=== PATIENT | female | born 1990 | race Caucasian/White ===

== ENCOUNTER 2016-10-24 21:55 | Inpatient (IN) | payer MEDICAID ==
[2016-10-24 22:33] VITALS: BP 126/66
[2016-10-24] MEDS ORDERED: Hydrocodone/APAP 5mg/325mg Tab PO PRN (23:08)
[2016-10-24] MEDS ORDERED: Hydrocodone/APAP 10 mg/325 mg Tab PO PRN (23:08)
[2016-10-24] MEDS ORDERED: Magnesium Hydroxide (MOM) 30 mL UDC PO PRN (23:08)
[2016-10-24] MEDS ORDERED: Maalox 30 mL Cup PO PRN (23:08)
[2016-10-24] MEDS ORDERED: Morphine Sulfate 2 mg/mL 1mL Syr IVP PRN (23:14)
[2016-10-24 23:58] LABS: HEMOGLOBIN 9.7 gm/dL (11.7-15.5)
[2016-10-25] LABS: HEMATOCRIT 29.1 % (35.0-45.0); MEAN CORPUSCULAR HEMOGLOBIN 34.9 pg (27.0-31.0); MEAN CORPUSCULAR HGB CONC 33.5 pg (28.0-36.0); MEAN PLATELET VOLUME 7.9 fl; PLATELET COUNT 292 Th/cmm (150-400); RED BLOOD COUNT 2.79 Mil/cmm (3.80-5.10); RED CELL DISTRIBUTION WIDTH 26.6 % (11.5-20.0)
[2016-10-25 00:03] LABS: MEAN CELL VOLUME 104.4 fl (81-100); WHITE BLOOD COUNT 7.6 Th/cmm (4.8-10.8)
[2016-10-25 00:08] LABS: ALB/GLOB RATIO 0.5 (1.0-1.8); ALKALINE PHOSPHATASE 87 U/L (34-104); ANION GAP 12.4 (7.0-16.0); BILIRUBIN,TOTAL 16.2 mg/dL (0.3-1.0); BUN - UREA NITROGEN 6 mg/dL (7-25); CALCIUM SERUM 8.6 mg/dL (8.6-10.3); CARBON DIOXIDE 22.9 mEq/L (21.0-31.0); CHLORIDE 99 mEq/L (98-107); CREATININE - SERUM 0.5 mg/dL (0.6-1.2); GLUCOSE 194 mg/dL (70-105); POTASSIUM SERUM 4.3 mEq/L (3.5-5.1); SGOT 175 U/L (13-39); SGPT/ALT 24 U/L (7-52); SODIUM SERUM 130 mEq/L (136-145)
[2016-10-25] MEDS: D5-0.9%NS 1,000 ML IV SCH ×3 (00:11→21:20)
[2016-10-25 00:23] LABS: ANISOCYTOSIS 2+; BAND NEUTROPHILE 9 % (0-10); HYPOCHROMIA 1+; NEUTROPHILS 79 % (40-80); PLATELET ESTIMATE ADEQUATE (NORMAL); POLYCHROMASIA 1+; TOTAL CELLS COUNTED 100
[2016-10-25 07:48] LABS: ALB/GLOB RATIO 0.5 (1.0-1.8); ALKALINE PHOSPHATASE 83 U/L (34-104); ANION GAP 7.6 (7.0-16.0); BILIRUBIN,TOTAL 15.8 mg/dL (0.3-1.0); BUN - UREA NITROGEN 6 mg/dL (7-25); CALCIUM SERUM 8.6 mg/dL (8.6-10.3); CARBON DIOXIDE 27.4 mEq/L (21.0-31.0); CHLORIDE 99 mEq/L (98-107); CREATININE - SERUM 0.6 mg/dL (0.6-1.2); GLUCOSE 179 mg/dL (70-105); SGOT 135 U/L (13-39); SGPT/ALT 22 U/L (7-52); SODIUM SERUM 130 mEq/L (136-145)
[2016-10-25 08:10] LABS: HEMATOCRIT 28.3 % (35.0-45.0); HEMOGLOBIN 9.9 gm/dL (11.7-15.5); MEAN CORPUSCULAR HEMOGLOBIN 36.5 pg (27.0-31.0); MEAN CORPUSCULAR HGB CONC 34.8 pg (28.0-36.0); PLATELET COUNT 282 Th/cmm (150-400); WHITE BLOOD COUNT 7.3 Th/cmm (4.8-10.8)
[2016-10-25] MEDS: Lactulose 10 Gm/15 mL 30mL UDC PO SCH (09:03)
[2016-10-25] MEDS: Pantoprazole 40 mg EC Tab PO SCH (09:04)
--- NOTE | 2016-10-25 09:11 | Diagnostic Imaging Report ---
Portable chest x-ray HISTORY: Cough There is a poor inspiration. Heart size difficult to assess, but appears to be somewhat enlarged. Elevation of the right hemidiaphragm. No focal pulmonary processes. IMPRESSION: 1. No acute focal pulmonary processes 2. Question cardiomegaly that may be associated with a poor inspiration.
[2016-10-25 11:03] LABS: BAND NEUTROPHILE 3 % (0-10); NEUTROPHILS 85 % (40-80); PLATELET ESTIMATE ADEQUATE (NORMAL); TOTAL CELLS COUNTED 100
[2016-10-25 11:04] LABS: TARGET CELLS 1+; TEAR DROP CELLS 1+
[2016-10-25 14:01] LABS: MEAN CELL VOLUME 105.1 fl (81-100)
--- NOTE | 2016-10-25 23:05 | Consultation ---
DATE OF CONSULTATION: 10/25/2016 REASON FOR CONSULTATION: Alcoholic liver disease, jaundice, abdominal distention, and leg swelling. HISTORY OF PRESENT ILLNESS: This consult was obtained through the courtesy of Dr. Andrews for this 26-year-old with history of alcohol abuse, had quit a couple of weeks ago. The patient presented to [facility], was admitted there, and was discharged. The patient did okay for a few days, but then her symptoms came back, which is mostly jaundice of the eyes and leg swelling and abdominal distention, so the patient was admitted here for further evaluation. The patient is mostly complaining of discoloration of the eyes and the urine, the leg edema, abdominal sweating, and just feeling weak and tired. PAST MEDICAL HISTORY: Negative other than the alcoholic liver disease. PAST SURGICAL HISTORY: Negative. SOCIAL HISTORY: The patient used to drink heavily after 2 weeks ago. A nonsmoker, IV drug abuser. FAMILY HISTORY: Negative. REVIEW OF SYSTEMS: There is no weight loss. There is no GI bleed. There is no fever. PHYSICAL EXAMINATION: GENERAL: The patient is awake, oriented to self, place, and time, mild to moderate distress. VITAL SIGNS: Blood pressure is 124/71, heart rate 89, respiratory rate 16, and temperature 98.6. HEAD AND NECK: Pupils are reactive to light. Extraocular muscles intact. Sclerae icteric. Conjunctivae not pale. Oral cavity, no lesion. NECK: Supple. No jugular venous distention. No carotid bruit or lymph node. CHEST: Good respiratory movements. LUNGS: Clear to auscultation. CARDIOVASCULAR: Regular rate and rhythm. No murmur or gallop. ABDOMEN: Distended, mildly tender. EXTREMITIES: Lower extremities, there is 3+ edema. CENTRAL NERVOUS SYSTEM: Grossly nonfocal. LABORATORY DATA: White count 7.3, H and H of 9.9 and 28.3 with platelets of 282,000. Her MCV is high at 105, sodium was 130, bilirubin is 15.8, AST 135, ALT 22, and albumin is 2.5. IMPRESSION: The patient 26-year-old with history of alcohol abuse, now with jaundice, abdominal distention or ascites. ASSESSMENT AND PLAN: 1. Alcoholic liver disease. This needs correction recovery. The patient should be sober for longer period of time. She was advised about this. We will start on multivitamin, thiamine, folic acid, nutrition support, and see how the patient is doing. 2. Edema and abdominal distention. We will start diuresis. The patient is getting Lasix 20 mg daily. We would increase it to 40 mg b.i.d. We will add Aldactone 100 mg b.i.d. We will watch kidney functions and then further recommendations to follow. Also, we will order ultrasound and ultrasound-guided paracentesis if possible. Thank you, Dr. Andrews, for allowing me to participate in the care of this patient. If you have any further questions, please let me know. JOB# [id number]
[2016-10-26 06:32] LABS: HEMATOCRIT 29.1 % (35.0-45.0); HEMOGLOBIN 9.7 gm/dL (11.7-15.5); MEAN CORPUSCULAR HEMOGLOBIN 35.1 pg (27.0-31.0); MEAN CORPUSCULAR HGB CONC 33.4 pg (28.0-36.0); MEAN PLATELET VOLUME 8.2 fl; PLATELET COUNT 288 Th/cmm (150-400); RED BLOOD COUNT 2.77 Mil/cmm (3.80-5.10); RED CELL DISTRIBUTION WIDTH 26.6 % (11.5-20.0)
[2016-10-26 06:34] LABS: URINE BILIRUBIN LARGE (NEGATIVE); URINE BLOOD TRACE (NEGATIVE); URINE GLUCOSE (UA) NEGATIVE (NEGATIVE); URINE KETONE NEGATIVE (NEGATIVE); URINE PROTEIN 30 mg/dL (NEGATIVE)
[2016-10-26 06:42] LABS: MEAN CELL VOLUME 105.1 fl (81-100)
[2016-10-26 07:06] LABS: ALB/GLOB RATIO 0.5 (1.0-1.8); ALKALINE PHOSPHATASE 83 U/L (34-104); ANION GAP 12.7 (7.0-16.0); BILIRUBIN,TOTAL 14.6 mg/dL (0.3-1.0); BUN - UREA NITROGEN 8 mg/dL (7-25); BUN/CREATININE RATIO 13.3; CALCIUM SERUM 8.6 mg/dL (8.6-10.3); CARBON DIOXIDE 23.3 mEq/L (21.0-31.0); CHLORIDE 101 mEq/L (98-107); CREATININE - SERUM 0.6 mg/dL (0.6-1.2); GLUCOSE 133 mg/dL (70-105); SGOT 299 U/L (13-39); SGPT/ALT 32 U/L (7-52); SODIUM SERUM 133 mEq/L (136-145)
[2016-10-26 07:33] LABS: URINE BACTERIA OCCASIONAL /hpf (NONE SEEN); URINE EPITHELIAL CELLS RARE /lpf (FEW); URINE RBC 0-1 /hpf (0-5); URINE WBC 0-2 /hpf (0-5)
[2016-10-26 08:08] LABS: BAND NEUTROPHILE 2 % (0-10); EOSINOPHIL 1 % (0-5); NEUTROPHILS 80 % (40-80); TOTAL CELLS COUNTED 100
[2016-10-26 08:09] LABS: ANISOCYTOSIS 2+; PLATELET ESTIMATE ADEQUATE (NORMAL); PLATELET MORPHOLOGY PLATELET CLUMPS SEEN (NORMAL)
[2016-10-26] MEDS: Pantoprazole 40 mg EC Tab PO SCH (09:59)
[2016-10-26] MEDS: Lactulose 10 Gm/15 mL 30mL UDC PO SCH (10:00)
[2016-10-26] MEDS: Multivitamin Tab PO SCH (10:02)
--- NOTE | 2016-10-26 10:31 | Diagnostic Imaging Report ---
Ultrasound abdomen limited History: Distention, assess for ascites Comparison: None Findings: Sonography of the abdomen was performed in multiple planes. No evidence of ascites. The liver appears enlarged. The liver borders are not well-defined on the exam. IMPRESSION: No evidence of ascites The liver appears enlarged. If indicated follow-up CT would provide additional detail and assessment.
--- NOTE | 2016-10-26 10:35 | History & Physical ---
ADMIT DATE: 10/25/2016 CHIEF COMPLAINT: The patient has jaundice and abdominal swelling. HISTORY OF PRESENT ILLNESS: The patient is a 26-year-old female with history of alcohol abuse, sober for 2 weeks. The patient states she was previously drinking 1 to 2 bowls of hard liquor daily. The patient had recent episode where she had lower GI bleed ____ and discharged on Lasix and propranolol. The patient was told that she has liver failure. The patient presented to [facility] ER for abdominal discomfort and abdominal swelling. The patient denies fever, chills, nausea, vomiting, diarrhea, melena or bright red blood per rectum, chest pain, shortness of breath or other complaints. SOCIAL HISTORY: History of alcohol abuse. PAST MEDICAL HISTORY: Alcohol abuse, GI bleed, anemia. PAST SURGICAL HISTORY: Negative. ALLERGIES: No known allergies. REVIEW OF SYSTEMS: See history of present illness. PHYSICAL EXAMINATION: GENERAL: The patient is awake, alert, nontoxic in appearance. VITAL SIGNS: On admission, temperature 97.5, blood pressure 126/66, respirations 20 and O2 sat 97% on room air. HEENT: Normocephalic, atraumatic. Extraocular movements intact. Oropharynx clear. NECK: Supple, no thyromegaly. CARDIOVASCULAR: S1, S2. No rubs or gallops. RESPIRATORY: Clear. No wheezes or rhonchi. GASTROINTESTINAL: Soft, nontender, distended. Positive bowel sounds. GENITOURINARY: No CVA tenderness. No suprapubic tenderness. BACK: Limited tenderness. EXTREMITIES: Equal pulses bilaterally. 2+ pitting edema in bilateral lower extremities. SKIN: Negative. PSYCHIATRIC: Negative. NEUROLOGIC: Cranial nerves intact. Extraocular motion is intact. Sensation intact. Neurovascular intact. Bilateral muscles grossly normal. LABORATORY DATA: On admission are as follows: Hematology: WBC of 7.6, hemoglobin 9.7, hematocrit 28.1, platelet count of 292. No left shift noted. Chemistry: Sodium 130, potassium 4.3, chloride 90, bicarbonate 22, anion gap 12, BUN 6, creatinine 0.5. GFR is more than 60. Glucose is 194, hemoglobin A1c is 4.5, calcium 8.6, total bilirubin 16.2. AST is 175, ALT is 24, alkaline phosphatase 87, total protein 7.9, albumin 2.6 and globulin 5.3. MICROBIOLOGY: No new microbiology results. RADIOLOGY: Chest x-ray on admission shows no acute focal pulmonary process. IMPRESSION: 1. Abdominal pain. 2. Alcoholic hepatitis. 3. Anemia. 4. Hyponatremia. 5. Hyperglycemia. 6. Hypoalbuminemia. 7. Alcoholic liver disease. 8. Bilateral lower extremity edema. PLAN: The patient is admitted to med/surg unit at [facility]. Obtain further labs and consultation as needed. JOB# [id number]
--- NOTE | 2016-10-26 11:06 | Progress Notes ---
DATE: 10/26/2016 SUBJECTIVE: The patient is awake, alert. The patient has been ordered for ultrasound-guided paracentesis. OBJECTIVE: VITAL SIGNS: Temperature 97.3, pulse 92, blood pressure 119/62, respiratory rate 18, 90% on room air. CARDIOVASCULAR: S1, S2. RESPIRATORY: Clear. ABDOMEN: Soft, distended, nontender. Positive bowel sounds. EXTREMITIES: Edema of bilateral lower extremity present. LABORATORY DATA: Hematology: WBC 6.0, hemoglobin 9.7, hematocrit 28.1, platelet count of 288, 8% monocytes. Chemistry: Sodium 133, potassium 4.0, chloride 101, bicarbonate 23, anion gap 12, BUN 8, creatinine 0.6, GFR is 160, glucose 133, calcium 8.6. Total bilirubin 14.6, AST 299, ALT 32, alkaline phosphatase 83, ammonia level 63, total protein 7.7, albumin 2.6, globulin is 5.1. Microbiology: No new micro results. RADIOLOGY: No new results. ASSESSMENT: 1. Abdominal pain, presently improved. 2. Anxiety. 3. Jaundice. 4. Alcoholic hepatitis. 5. Alcoholic liver disease. 6. Bilateral lower extremity edema. 7. Anemia. 8. Hyponatremia. 9. Hyperglycemia. 10. Transaminitis. 11. Elevated ammonia level. 12. Hypoalbuminemia. PLAN: Continue current management. Obtain labs in a.m. Awaiting ultrasound results. Give the patient lactulose for elevated ammonia level. Further consults. JOB# [id number]
--- NOTE | 2016-10-26 16:14 | GI Progress Note ---
Subjective - Review of Systems Service Date: 10/26/16 Events since last encounter: US performed and showed no fluid but massive hepatomegaly. Pt having 1 BM per day, no confusion. Objective - Results Result Diagrams: 10/26/16 05:15 10/26/16 05:15 Recent Labs: Laboratory Last Values WBC 6.0 Th/cmm (4.8-10.8) 10/26/16 05:15 RBC 2.77 Mil/cmm (3.80-5.10) L 10/26/16 05:15 Hgb 9.7 gm/dL (11.7-15.5) L 10/26/16 05:15 Hct 29.1 % (35.0-45.0) L 10/26/16 05:15 MCV 105.1 fl (81-100) H 10/26/16 05:15 MCH 35.1 pg (27.0-31.0) H 10/26/16 05:15 MCHC Differential 33.4 pg (28.0-36.0) 10/26/16 05:15 RDW 26.6 % (11.5-20.0) H 10/26/16 05:15 Plt Count 288 Th/cmm (150-400) 10/26/16 05:15 MPV 8.2 fl 10/26/16 05:15 Band Neutrophils % 2 % (0-10) 10/26/16 05:15 Neutrophils (Manual) 80 % (40-80) 10/26/16 05:15 Lymphocytes 8 % (20-50) L 10/26/16 05:15 Monocytes 9 % (2-10) 10/26/16 05:15 Eosinophils 1 % (0-5) 10/26/16 05:15 Hypochromia 1+ 10/24/16 23:45 Platelet Estimate ADEQUATE (NORMAL) 10/26/16 05:15 Platelet Morphology PLATELET CLUMPS SEEN (NORMAL) 10/26/16 05:15 Polychromasia 1+ 10/24/16 23:45 Anisocytosis 2+ 10/26/16 05:15 Macrocytosis 1+ 10/26/16 05:15 Target Cells 1+ 10/25/16 06:41 Tear Drop Cells 1+ 10/25/16 06:41 RBC Morph Micro Appear ABNORMAL (NORMAL) 10/26/16 05:15 Sodium 133 mEq/L (136-145) L 10/26/16 05:15 Potassium 4.0 mEq/L (3.5-5.1) 10/26/16 05:15 Chloride 101 mEq/L (98-107) 10/26/16 05:15 Carbon Dioxide 23.3 mEq/L (21.0-31.0) 10/26/16 05:15 Anion Gap 12.7 (7.0-16.0) 10/26/16 05:15 BUN 8 mg/dL (7-25) 10/26/16 05:15 Creatinine 0.6 mg/dL (0.6-1.2) 10/26/16 05:15 Est GFR ( Amer) > 60.0 ml/min (>90) 10/26/16 05:15 Est GFR (Non-Af Amer) > 60.0 ml/min 10/26/16 05:15 BUN/Creatinine Ratio 13.3 10/26/16 05:15 Glucose 133 mg/dL (70-105) H 10/26/16 05:15 Hemoglobin A1c % 4.5 % (4.0-6.0) 10/24/16 23:45 Calcium 8.6 mg/dL (8.6-10.3) 10/26/16 05:15 Total Bilirubin 14.6 mg/dL (0.3-1.0) H 10/26/16 05:15 AST 299 U/L (13-39) H 10/26/16 05:15 ALT 32 U/L (7-52) 10/26/16 05:15 Alkaline Phosphatase 83 U/L (34-104) 10/26/16 05:15 Ammonia 54 umol/L (16-53) H 10/26/16 10:50 Total Protein 7.7 gm/dL (6.0-8.3) 10/26/16 05:15 Albumin 2.6 gm/dL (3.7-5.3) L 10/26/16 05:15 Globulin 5.1 gm/dL 10/26/16 05:15 Albumin/Globulin Ratio 0.5 (1.0-1.8) L 10/26/16 05:15 Urine Source CLEAN C 10/26/16 03:59 Urine Color D. YELLOW 10/26/16 03:59 Urine Clarity SL. CLOUDY (CLEAR) 10/26/16 03:59 Urine pH 6.0 (4.6 - 8.0) 10/26/16 03:59 Ur Specific [place] 1.015 (1.005-1.030) 10/26/16 03:59 Urine Protein 30 mg/dL (NEGATIVE) H 10/26/16 03:59 Urine Glucose (UA) NEGATIVE mg/dL (NEGATIVE) 10/26/16 03:59 Urine Ketones NEGATIVE mg/dL (NEGATIVE) 10/26/16 03:59 Urine Blood TRACE (NEGATIVE) 10/26/16 03:59 Urine Nitrate NEGATIVE (NEGATIVE) 10/26/16 03:59 Urine Bilirubin LARGE (NEGATIVE) H 10/26/16 03:59 Urine Ictotest POSITIVE (NEGATIVE) 10/26/16 03:59 Urine Urobilinogen 1.0 E.U./dL (0.2 - 1.0) 10/26/16 03:59 Ur Leukocyte Esterase TRACE (NEGATIVE) H 10/26/16 03:59 Urine RBC 0-1 /hpf (0-5) 10/26/16 03:59 Urine WBC 0-2 /hpf (0-5) 10/26/16 03:59 Ur Epithelial Cells RARE /lpf (FEW) 10/26/16 03:59 Urine Bacteria OCCASIONAL /hpf (NONE SEEN) 10/26/16 03:59 - Physical Exam Vitals and I&O: Vital Signs Temp 97.3 F 10/26/16 08:00 Pulse 111 10/26/16 10:01 Resp 18 10/26/16 08:00 BP 133/65 10/26/16 10:01 Pulse Ox 93 10/26/16 08:00 Intake & Output 10/25/16 10/26/16 10/26/16 18:59 06:59 18:59 Intake Total 1979 1720 Output Total 300 Balance 1979 1420 Weight (lbs) 102.965 kg 109.486 kg 109.588 kg Intake: Intake, IV Amount 1000 1000 D5-0.9%Ns 1,000 ml @ 100 1000 1000 mls/hr IV .Q10H ELLIE Rx#: [id number] Oral 980 720 Output: Urine 300 Other: # Voids 3 # Bowel Movements 1 Active Medications: Current Medications Acetaminophen (Tylenol) 650 mg PO Q6H PRN PRN Reason: Mild Pain/Headache/T above 101 Stop: 12/23/16 23:07 Acetaminophen/Hydrocodone Bitart (Barry 10 Mg/325 Mg) 1 tab PO Q6H PRN PRN Reason: Pain (Severe) Stop: 12/23/16 23:07 Acetaminophen/Hydrocodone Bitart (Barry 5mg/325mg) 1 tab PO Q6H PRN PRN Reason: Moderate Pain Stop: 12/23/16 23:07 Al Hydrox/Mg Hydrox/Simethicone (Maalox) 30 ml PO Q6H PRN PRN Reason: Dyspepsia Stop: 12/23/16 23:07 Folic Acid (Folate) 1 mg PO DAILY ELLIE Stop: 12/24/16 18:29 Last Admin: 10/26/16 10:02 Dose: 1 mg Furosemide (Lasix) 40 mg PO DAILY ELLIE Stop: 12/26/16 08:59 Dextrose/Sodium Chloride (D5-0.9%Ns) 1,000 mls @ 100 mls/hr IV .Q10H ELLIE Stop: 12/23/16 23:14 Last Admin: 10/25/16 21:20 Dose: 100 mls/hr Lactulose (Cephulac) 20 gm PO DAILY ELLIE Stop: 12/24/16 08:59 Last Admin: 10/26/16 10:00 Dose: Not Given Lorazepam (Ativan) 1 mg PO Q6H PRN; Protocol PRN Reason: Anxiety/Agitation Stop: 12/23/16 23:07 Magnesium Hydroxide (Milk Of Magnesia) 30 ml PO HS PRN PRN Reason: Constipation Stop: 12/23/16 23:07 Morphine Sulfate (Morphine) 2 mg IVP Q4H PRN PRN Reason: Severe Pain Stop: 12/23/16 23:13 Multivitamins/Vitamin C (Theragran) 1 tab PO DAILY ELLIE Stop: 12/24/16 18:29 Last Admin: 10/26/16 10:02 Dose: 1 tab Ondansetron HCl (Zofran Odt) 4 mg PO Q6H PRN PRN Reason: Nausea / Vomiting Stop: 12/23/16 23:07 Pantoprazole Sodium (Protonix) 40 mg PO DAILY ELLIE Stop: 12/24/16 08:59 Last Admin: 10/26/16 09:59 Dose: 40 mg Propranolol HCl (Inderal) 10 mg PO BID ELLIE Stop: 12/24/16 08:59 Last Admin: 10/26/16 09:58 Dose: 10 mg Temazepam (Restoril) 15 mg PO HS PRN; Protocol PRN Reason: Insomnia Stop: 12/23/16 23:13 Thiamine HCl (Vitamin B1) 100 mg PO DAILY ELLIE Stop: 12/24/16 18:29 Last Admin: 10/26/16 09:59 Dose: 100 mg General: Alert, Oriented x3 HEENT: Atraumatic, Other (scleral icterus) Neck: Supple Cardiovascular: Regular rate, Normal S1, Normal S2 Abdomen: Bowel sounds, Soft, Hepatomegaly, Distended, Other (no obvious fluid wave) Extremities: Edema Skin: Other (jaundice) Assessment/Plan - Problem List Patient Problems: All Active Problems Alcoholic hepatitis (Acute) K70.10 Alcoholic hepatitis without ascites (Acute) K70.10 - Assessment Assessment: # Alcoholic hepatitis # Hepatomegaly # LE edema # Jaundice Pt reports last drink was about 3 weeks prior. She still clearly is suffering alcoholic hepatitis given her elevated Tbili pereira and very large inflammed liver. She has no ascites on US, and I suspect her distended abdomen is mostly reflecting hepatomegaly. Recent studies have shown that prednisilone and trental have largely minimal to no benefit, but do carry significant possible adverse effects. Thus, she has not been started on these medications. Plan: - diuretics recently increased on 10/25 to aldactone 100 and lasix 40mg, which will hopefully help with her LE edema - No ascites on US, thus do not suspect portal vein thrombus (she would not be a good candidate for anticoagulation given background of alcoholic hepatitis) - Strongly recommend abstaining from EtOH which can facilitate recovery from alc hepatitis - Unclear whether she has underlying cirrhosis, and this can be assessed after she has been abstinent for a longer time period - 2g Na diet
[2016-10-26 16:38] LABS: INR 1.53 (0.5-1.4); PROTHROMBIN TIME (TEST) 16.2 SECONDS (9.5-11.5)
[2016-10-27 07:40] LABS: ALB/GLOB RATIO 0.6 (1.0-1.8); ALKALINE PHOSPHATASE 81 U/L (34-104); ANION GAP 8.9 (7.0-16.0); BILIRUBIN,TOTAL 15.7 mg/dL (0.3-1.0); BUN - UREA NITROGEN 6 mg/dL (7-25); CALCIUM SERUM 8.7 mg/dL (8.6-10.3); CARBON DIOXIDE 26.8 mEq/L (21.0-31.0); CHLORIDE 100 mEq/L (98-107); CREATININE - SERUM 0.5 mg/dL (0.6-1.2); GLUCOSE 104 mg/dL (70-105); POTASSIUM SERUM 3.7 mEq/L (3.5-5.1); SGOT 286 U/L (13-39); SGPT/ALT 37 U/L (7-52); SODIUM SERUM 132 mEq/L (136-145)
[2016-10-27 08:32] LABS: HEMATOCRIT 27.4 % (35.0-45.0); HEMOGLOBIN 9.3 gm/dL (11.7-15.5); MEAN CORPUSCULAR HEMOGLOBIN 35.9 pg (27.0-31.0); MEAN CORPUSCULAR HGB CONC 33.7 pg (28.0-36.0); MEAN PLATELET VOLUME 8.3 fl; PLATELET COUNT 277 Th/cmm (150-400); RED BLOOD COUNT 2.58 Mil/cmm (3.80-5.10); RED CELL DISTRIBUTION WIDTH 27.5 % (11.5-20.0); WHITE BLOOD COUNT 5.7 Th/cmm (4.8-10.8)
[2016-10-27 08:42] LABS: MEAN CELL VOLUME 106.4 fl (81-100)
[2016-10-27] MEDS: Multivitamin Tab PO SCH (08:50)
[2016-10-27] MEDS: Pantoprazole 40 mg EC Tab PO SCH (08:51)
[2016-10-27] MEDS: Lactulose 10 Gm/15 mL 30mL UDC PO SCH (09:20)
[2016-10-27 09:55] LABS: ANISOCYTOSIS 2+; BAND NEUTROPHILE 7 % (0-10); NEUTROPHILS 72 % (40-80); PLATELET ESTIMATE ADEQUATE (NORMAL); PLATELET MORPHOLOGY NORMAL (NORMAL); TARGET CELLS 1+; TOTAL CELLS COUNTED 100
[2016-10-27] MEDS: D5-0.45NS 1,000 ML IV SCH (10:35)
--- NOTE | 2016-10-27 11:08 | Progress Notes ---
DATE: 10/27/2016 SUBJECTIVE: The patient is awake and alert. No reports of confusion. No reports of abdominal pain. PHYSICAL EXAMINATION: VITAL SIGNS: Temperature is 98, pulse 109, blood pressure 133/80, respirations 18, O2 sat 96% on room air. CARDIOVASCULAR: S1 and S2. RESPIRATORY: Clear. GASTROINTESTINAL: Soft, distended, nontender. Positive bowel sounds. LABORATORY DATA: Hematology: WBC 5.7, hemoglobin is 9.3, hematocrit 27.4, platelet count of 277 and no ____. Chemistry: Sodium 132, potassium 3.7, chloride 108, bicarbonate 8.9, BUN 6, creatinine 0.5. GFR is more than 60. Glucose is 104, calcium 8.7. Total bili 15.7, AST 286, ALT 37, alkaline phosphatase 81, ____ 7.8, albumin 2.8, globulin 5.0. Microbiology: MRSA screen from 10/25/2016 negative. RADIOLOGY: Abdominal ultrasound shows no evidence of ascites. Liver appears enlarged. ASSESSMENT: 1. Abdominal pain, resolved. 2. Ascites ruled out. 3. Jaundice with alcohol hepatitis and alcohol liver disease. 4. Bilateral extremity edema (improved). 5. Anemia. 6. Hyponatremia. 7. Transaminitis. 8. Hypoalbuminemia. PLAN: Continue current medication. Obtain labs in a.m. Continue diuresis. JOB# [id number]
[2016-10-28 05:52] LABS: HEMATOCRIT 27.8 % (35.0-45.0); HEMOGLOBIN 9.1 gm/dL (11.7-15.5); MEAN CORPUSCULAR HEMOGLOBIN 34.7 pg (27.0-31.0); MEAN CORPUSCULAR HGB CONC 32.5 pg (28.0-36.0); MEAN PLATELET VOLUME 8.2 fl; PLATELET COUNT 261 Th/cmm (150-400); RED BLOOD COUNT 2.61 Mil/cmm (3.80-5.10); RED CELL DISTRIBUTION WIDTH 26.3 % (11.5-20.0); WHITE BLOOD COUNT 6.8 Th/cmm (4.8-10.8)
[2016-10-28 06:02] LABS: INR 1.38 (0.5-1.4); PROTHROMBIN TIME (TEST) 14.6 SECONDS (9.5-11.5)
[2016-10-28 06:14] LABS: ALB/GLOB RATIO 0.5 (1.0-1.8); ALKALINE PHOSPHATASE 78 U/L (34-104); ANION GAP 9.4 (7.0-16.0); BILIRUBIN,DIRECT 8.63 mg/dL (0.0-0.2); BILIRUBIN,TOTAL 15.2 mg/dL (0.3-1.0); BUN - UREA NITROGEN 4 mg/dL (7-25); CALCIUM SERUM 8.7 mg/dL (8.6-10.3); CARBON DIOXIDE 27.3 mEq/L (21.0-31.0); CHLORIDE 101 mEq/L (98-107); CREATININE - SERUM 0.5 mg/dL (0.6-1.2); GLUCOSE 115 mg/dL (70-105); POTASSIUM SERUM 3.7 mEq/L (3.5-5.1); SGOT 233 U/L (13-39); SGPT/ALT 36 U/L (7-52); SODIUM SERUM 134 mEq/L (136-145)
[2016-10-28] MEDS: Lactulose 10 Gm/15 mL 30mL UDC PO SCH (09:21)
[2016-10-28] MEDS: Multivitamin Tab PO SCH (09:22)
[2016-10-28] MEDS: Pantoprazole 40 mg EC Tab PO SCH (09:22)
[2016-10-28] MEDS: D5-0.45NS 1,000 ML IV SCH (09:38)
[2016-10-28 13:56] LABS: MEAN CELL VOLUME 106.7 fl (81-100)
--- NOTE | 2016-10-28 23:32 | Progress Notes ---
DATE: 10/28/2016 SUBJECTIVE: The patient is awake, alert. No reports of acute complaints. The patient has been started on ____ by GI. PHYSICAL EXAMINATION: VITAL SIGNS: Temperature is 98.6, pulse 101, blood pressure 130/54, respirations 16, and O2 saturation 97% on room air. CARDIOVASCULAR: S1 and S2. RESPIRATORY: Clear. GASTROINTESTINAL: Soft, distended, nontender. Positive bowel sounds. EXTREMITIES: Bilateral lower extremity edema present. LABORATORY DATA: Hematology: WBC 6.8, hemoglobin 9.1, hematocrit 27.8, platelet count 261. No left Shift noted. PT 14.6, INR 1.38. Chemistry: Sodium is 134, potassium 3.7, chloride 101, bicarbonate 27, anion gap 9.4, BUN 4, creatinine 0.5. GFR is more than 60, glucose 115, calcium 8.7. Total bilirubin 15.2, direct bilirubin is 8.6, AST is 233, ALT is 36, alkaline phosphatase 78, ammonia level is 60, total protein 7.4, albumin 2.6, globulin is 4.8. MICROBIOLOGY: No new microbiology results. RADIOLOGY: No new radiology results. ASSESSMENT: 1. Abdominal pain, resolved. 2. Ascites, ruled out. 3. Jaundice. 4. Alcohol hepatitis. 5. Alcohol liver disease. 6. Bilateral lower extremity edema. 7. Anemia. 8. Hyponatremia (improved). 9. Hyperglycemia. 10. Transaminitis (improved). 11. Elevated ammonia level. 12. Hypoalbuminemia. 13. Possible urinary tract infection. PLAN: Continue current medication and treatment. Obtain labs in a.m. Continue diuresis. We will start the patient on ____ for possible UTI. Further recommendations per consults. JOB# [id number]
[2016-10-29 05:31] LABS: HEMATOCRIT 28.2 % (35.0-45.0); HEMOGLOBIN 9.5 gm/dL (11.7-15.5); MEAN CORPUSCULAR HGB CONC 33.9 pg (28.0-36.0); MEAN PLATELET VOLUME 7.8 fl; PLATELET COUNT 243 Th/cmm (150-400); RED BLOOD COUNT 2.65 Mil/cmm (3.80-5.10); RED CELL DISTRIBUTION WIDTH 25.4 % (11.5-20.0); WHITE BLOOD COUNT 6.9 Th/cmm (4.8-10.8)
[2016-10-29 05:49] LABS: INR 1.47 (0.5-1.4); PROTHROMBIN TIME (TEST) 15.6 SECONDS (9.5-11.5)
[2016-10-29 05:51] LABS: ALB/GLOB RATIO 0.6 (1.0-1.8); ALKALINE PHOSPHATASE 77 U/L (34-104); BILIRUBIN,DIRECT 8.93 mg/dL (0.0-0.2); BILIRUBIN,TOTAL 15.4 mg/dL (0.3-1.0); BUN - UREA NITROGEN 3 mg/dL (7-25); CALCIUM SERUM 8.8 mg/dL (8.6-10.3); CARBON DIOXIDE 28.9 mEq/L (21.0-31.0); CHLORIDE 100 mEq/L (98-107); CREATININE - SERUM 0.5 mg/dL (0.6-1.2); GLUCOSE 117 mg/dL (70-105); POTASSIUM SERUM 3.9 mEq/L (3.5-5.1); SGOT 190 U/L (13-39); SGPT/ALT 35 U/L (7-52); SODIUM SERUM 134 mEq/L (136-145)
[2016-10-29 06:00] LABS: MEAN CELL VOLUME 106.3 fl (81-100)
[2016-10-29 07:54] LABS: BAND NEUTROPHILE 1 % (0-10); BASOPHIL 2 % (0-3); EOSINOPHIL 1 % (0-5); NEUTROPHILS 67 % (40-80); TOTAL CELLS COUNTED 100
[2016-10-29 07:55] LABS: ANISOCYTOSIS 2+; PLATELET ESTIMATE ADEQUATE (NORMAL); PLATELET MORPHOLOGY NORMAL (NORMAL); POLYCHROMASIA 1+
[2016-10-29] MEDS: Lactulose 10 Gm/15 mL 30mL UDC PO SCH (09:04)
[2016-10-29] MEDS: Multivitamin Tab PO SCH (09:05)
[2016-10-29] MEDS: Pantoprazole 40 mg EC Tab PO SCH (09:05)
[2016-10-29] MEDS: D5-0.45NS 1,000 ML IV SCH (15:54)
--- NOTE | 2016-10-29 16:06 | GI Progress Note ---
Subjective - Review of Systems Service Date: 10/29/16 Events since last encounter: Pt notes she vomited once while eating [employer]. Otherwise feeling well. Objective - Results Result Diagrams: 10/29/16 05:20 10/29/16 05:20 Recent Labs: Laboratory Last Values WBC 6.9 Th/cmm (4.8-10.8) 10/29/16 05:20 RBC 2.65 Mil/cmm (3.80-5.10) L 10/29/16 05:20 Hgb 9.5 gm/dL (11.7-15.5) L 10/29/16 05:20 Hct 28.2 % (35.0-45.0) L 10/29/16 05:20 MCV 106.3 fl (81-100) H 10/29/16 05:20 MCH 36.0 pg (27.0-31.0) H 10/29/16 05:20 MCHC Differential 33.9 pg (28.0-36.0) 10/29/16 05:20 RDW 25.4 % (11.5-20.0) H 10/29/16 05:20 Plt Count 243 Th/cmm (150-400) 10/29/16 05:20 MPV 7.8 fl 10/29/16 05:20 Band Neutrophils % 1 % (0-10) 10/29/16 05:20 Neutrophils (Manual) 67 % (40-80) 10/29/16 05:20 Lymphocytes 19 % (20-50) L 10/29/16 05:20 Monocytes 10 % (2-10) 10/29/16 05:20 Eosinophils 1 % (0-5) 10/29/16 05:20 Basophils 2 % (0-3) 10/29/16 05:20 Hypochromia 1+ 10/24/16 23:45 Platelet Estimate ADEQUATE (NORMAL) 10/29/16 05:20 Platelet Morphology NORMAL (NORMAL) 10/29/16 05:20 Polychromasia 1+ 10/29/16 05:20 Anisocytosis 2+ 10/29/16 05:20 Macrocytosis 1+ 10/29/16 05:20 Target Cells 1+ 10/27/16 05:17 Tear Drop Cells 1+ 10/25/16 06:41 RBC Morph Micro Appear ABNORMAL (NORMAL) 10/29/16 05:20 PT 15.6 SECONDS (9.5-11.5) H 10/29/16 05:20 INR 1.47 (0.5-1.4) H 10/29/16 05:20 Sodium 134 mEq/L (136-145) L 10/29/16 05:20 Potassium 3.9 mEq/L (3.5-5.1) 10/29/16 05:20 Chloride 100 mEq/L (98-107) 10/29/16 05:20 Carbon Dioxide 28.9 mEq/L (21.0-31.0) 10/29/16 05:20 Anion Gap 9.0 (7.0-16.0) 10/29/16 05:20 BUN 3 mg/dL (7-25) L 10/29/16 05:20 Creatinine 0.5 mg/dL (0.6-1.2) L 10/29/16 05:20 Est GFR ( Amer) > 60.0 ml/min (>90) 10/29/16 05:20 Est GFR (Non-Af Amer) > 60.0 ml/min 10/29/16 05:20 BUN/Creatinine Ratio 6.0 10/29/16 05:20 Glucose 117 mg/dL (70-105) H 10/29/16 05:20 Hemoglobin A1c % 4.5 % (4.0-6.0) 10/24/16 23:45 Calcium 8.8 mg/dL (8.6-10.3) 10/29/16 05:20 Total Bilirubin 15.4 mg/dL (0.3-1.0) H 10/29/16 05:20 Direct Bilirubin 8.93 mg/dL (0.0-0.2) H 10/29/16 05:20 AST 190 U/L (13-39) H 10/29/16 05:20 ALT 35 U/L (7-52) 10/29/16 05:20 Alkaline Phosphatase 77 U/L (34-104) 10/29/16 05:20 Ammonia 61 umol/L (16-53) H 10/29/16 05:20 Total Protein 7.1 gm/dL (6.0-8.3) 10/29/16 05:20 Albumin 2.6 gm/dL (3.7-5.3) L 10/29/16 05:20 Globulin 4.5 gm/dL 10/29/16 05:20 Albumin/Globulin Ratio 0.6 (1.0-1.8) L 10/29/16 05:20 Urine Source CLEAN C 10/26/16 03:59 Urine Color D. YELLOW 10/26/16 03:59 Urine Clarity SL. CLOUDY (CLEAR) 10/26/16 03:59 Urine pH 6.0 (4.6 - 8.0) 10/26/16 03:59 Ur Specific [place] 1.015 (1.005-1.030) 10/26/16 03:59 Urine Protein 30 mg/dL (NEGATIVE) H 10/26/16 03:59 Urine Glucose (UA) NEGATIVE mg/dL (NEGATIVE) 10/26/16 03:59 Urine Ketones NEGATIVE mg/dL (NEGATIVE) 10/26/16 03:59 Urine Blood TRACE (NEGATIVE) 10/26/16 03:59 Urine Nitrate NEGATIVE (NEGATIVE) 10/26/16 03:59 Urine Bilirubin LARGE (NEGATIVE) H 10/26/16 03:59 Urine Ictotest POSITIVE (NEGATIVE) 10/26/16 03:59 Urine Urobilinogen 1.0 E.U./dL (0.2 - 1.0) 10/26/16 03:59 Ur Leukocyte Esterase TRACE (NEGATIVE) H 10/26/16 03:59 Urine RBC 0-1 /hpf (0-5) 10/26/16 03:59 Urine WBC 0-2 /hpf (0-5) 10/26/16 03:59 Ur Epithelial Cells RARE /lpf (FEW) 10/26/16 03:59 Urine Bacteria OCCASIONAL /hpf (NONE SEEN) 10/26/16 03:59 - Physical Exam Vitals and I&O: Vital Signs Temp 98.4 F 10/29/16 12:00 Pulse 100 10/29/16 12:00 Resp 17 10/29/16 04:00 BP 125/73 10/29/16 12:00 Pulse Ox 96 10/29/16 04:00 Intake & Output 10/28/16 10/29/16 10/29/16 18:59 06:59 18:59 Intake Total 600 1000 Balance 600 1000 Weight (lbs) 107.32 kg 103.918 kg Intake: Intake, IV Amount 1000 D5-0.45NS 1,000 ml @ 50 1000 mls/hr IV .Q20H ELLIE Rx#: [id number] Oral 600 Other: # Voids 3 2 Active Medications: Current Medications Acetaminophen (Tylenol) 650 mg PO Q6H PRN PRN Reason: Mild Pain/Headache/T above 101 Stop: 12/23/16 23:07 Acetaminophen/Hydrocodone Bitart ([place] 10 Mg/325 Mg) 1 tab PO Q6H PRN PRN Reason: Pain (Severe) Stop: 12/23/16 23:07 Acetaminophen/Hydrocodone Bitart ([place] 5mg/325mg) 1 tab PO Q6H PRN PRN Reason: Moderate Pain Stop: 12/23/16 23:07 Al Hydrox/Mg Hydrox/Simethicone (Maalox) 30 ml PO Q6H PRN PRN Reason: Dyspepsia Stop: 12/23/16 23:07 Folic Acid (Folate) 1 mg PO DAILY ELLIE Stop: 12/24/16 18:29 Last Admin: 10/29/16 09:05 Dose: 1 mg Furosemide (Lasix) 40 mg PO DAILY ELLIE Stop: 12/26/16 08:59 Last Admin: 10/29/16 09:06 Dose: 40 mg Dextrose/Sodium Chloride (D5-0.45ns) 1,000 mls @ 50 mls/hr IV .Q20H ELLIE Stop: 12/26/16 08:56 Last Admin: 10/29/16 15:54 Dose: 50 mls/hr Lactulose (Cephulac) 20 gm PO DAILY ELLIE Stop: 12/24/16 08:59 Last Admin: 10/29/16 09:04 Dose: 20 gm Lorazepam (Ativan) 1 mg PO Q6H PRN; Protocol PRN Reason: Anxiety/Agitation Stop: 12/23/16 23:07 Magnesium Hydroxide (Milk Of Magnesia) 30 ml PO HS PRN PRN Reason: Constipation Stop: 12/23/16 23:07 Morphine Sulfate (Morphine) 2 mg IVP Q4H PRN PRN Reason: Severe Pain Stop: 12/23/16 23:13 Multivitamins/Vitamin C (Theragran) 1 tab PO DAILY ELLIE Stop: 12/24/16 18:29 Last Admin: 10/29/16 09:05 Dose: 1 tab Nitrofurantoin Macrocrystals (Macrobid) 100 mg PO BID ELLIE PRN Reason: Protocol Stop: 12/27/16 11:55 Last Admin: 10/29/16 09:05 Dose: 100 mg Ondansetron HCl (Zofran Odt) 4 mg PO Q6H PRN PRN Reason: Nausea / Vomiting Stop: 12/23/16 23:07 Last Admin: 10/29/16 12:45 Dose: 4 mg Pantoprazole Sodium (Protonix) 40 mg PO DAILY [facility] Stop: 12/24/16 08:59 Last Admin: 10/29/16 09:05 Dose: 40 mg Pentoxifylline (Trental) 400 mg PO TIDWM [facility] Stop: 12/26/16 11:59 Last Admin: 10/29/16 12:44 Dose: 400 mg Propranolol HCl (Inderal) 10 mg PO BID [facility] Stop: 12/24/16 08:59 Last Admin: 10/29/16 09:15 Dose: Not Given Spironolactone (Aldactone) 100 mg PO DAILY [facility] Stop: 12/26/16 08:59 Last Admin: 10/29/16 09:04 Dose: 100 mg Temazepam (Restoril) 15 mg PO HS PRN; Protocol PRN Reason: Insomnia Stop: 12/23/16 23:13 Thiamine HCl (Vitamin B1) 100 mg PO DAILY [facility] Stop: 12/24/16 18:29 Last Admin: 10/29/16 09:05 Dose: 100 mg General: Alert, Oriented x3 HEENT: Atraumatic, Other (scleral icterus) Neck: Supple Cardiovascular: Regular rate, Normal S1, Normal S2 Abdomen: Bowel sounds, Soft, Hepatomegaly, Distended, Other (no obvious fluid wave) Extremities: Edema Skin: Other (jaundice) Assessment/Plan - Problem List Patient Problems: All Active Problems Alcoholic hepatitis (Acute) K70.10 Alcoholic hepatitis without ascites (Acute) K70.10 - Assessment Assessment: # Alcoholic hepatitis # Hepatomegaly # LE edema # Jaundice Pt reports last drink was about 3 weeks prior. She still clearly is suffering alcoholic hepatitis given her elevated Tbilirubin and very large inflamed liver. She has no ascites on US, and I suspect her distended abdomen is mostly reflecting hepatomegaly. Recent studies have shown that prednisilone and trental have largely minimal to no benefit, although prednisilone can carry infection risk. Given she has concurrent UTI, will use trental in this case. LFTs mildly improving, which is typical for alcoholic hepatitis. Recovery is a long process. Plan: - continue diuretics recently increased on 10/25 to aldactone 100 and lasix 40mg , which will hopefully help with her LE edema - No ascites on US, thus do not suspect portal vein thrombus (she would not be a good candidate for anticoagulation given background of alcoholic hepatitis) - Strongly recommend abstaining from EtOH which can facilitate recovery from alc hepatitis - Unclear whether she has underlying cirrhosis, and this can be assessed after she has been abstinent for a longer time period - 2g Na diet - continue thiamine - continue trental 400mg tid
--- NOTE | 2016-10-30 03:02 | Progress Notes ---
DATE: 10/29/2016 SUBJECTIVE: The patient is awake, alert. The patient complains of bilateral lower extremities swelling. PHYSICAL EXAMINATION: VITAL SIGNS: Temperature is 98.4, pulse 100, blood pressure 125/73. CARDIOVASCULAR: S1, S2. RESPIRATORY: Clear. GASTROINTESTINAL: Abdomen is soft, distended, nontender. Positive bowel sounds. EXTREMITIES: Bilateral lower extremity edema present. LABORATORY DATA: WBC is 6.9, hemoglobin is 9.5, hematocrit 28.2, platelet count 243 and 19% lymphocytes. Coagulation: PT 15.6, INR 1.47. Chemistry: Sodium 134, potassium 3.9, chloride ____, bicarbonate 28, anion gap 9, BUN 3, creatinine 0.5. GFR is more than 60, glucose 117, calcium 8.8. ____, direct bilirubin 8.9, AST is 190, ALT 35, alkaline phosphatase is 77, ammonia level 61, total protein 7.1, albumin 2.6, globulin 4.5. MICROBIOLOGY: No new microbiology results. RADIOLOGY: No new radiology results. ASSESSMENT: 1. Abdominal pain, resolved. 2. Ascites, ruled out. 3. Jaundice. 4. Alcohol hepatitis. 5. Alcohol liver disease. 6. Bilateral lower extremity edema. 7. Anemia. 8. Hyponatremia. 9. Hyperglycemia. 10. Transaminitis. 11. Elevated ammonia level. 12. Hypoalbuminemia. 13. Urinary tract infection. PLAN: Continue current medication and treatment. Obtain labs in a.m. Continue diuresis. Further recommendations per consults. Thank you very much. JOB# [id number]
[2016-10-30 05:54] LABS: HEMATOCRIT 27.9 % (35.0-45.0); HEMOGLOBIN 9.7 gm/dL (11.7-15.5); MEAN CORPUSCULAR HEMOGLOBIN 36.3 pg (27.0-31.0); MEAN CORPUSCULAR HGB CONC 34.6 pg (28.0-36.0); PLATELET COUNT 251 Th/cmm (150-400); RED BLOOD COUNT 2.66 Mil/cmm (3.80-5.10); WHITE BLOOD COUNT 6.5 Th/cmm (4.8-10.8)
[2016-10-30 06:23] LABS: INR 1.53 (0.5-1.4); PROTHROMBIN TIME (TEST) 16.2 SECONDS (9.5-11.5)
[2016-10-30 06:42] LABS: ALB/GLOB RATIO 0.6 (1.0-1.8); ALKALINE PHOSPHATASE 92 U/L (34-104); ANION GAP 9.2 (7.0-16.0); BILIRUBIN,TOTAL 16.6 mg/dL (0.3-1.0); BUN - UREA NITROGEN 4 mg/dL (7-25); CARBON DIOXIDE 28.6 mEq/L (21.0-31.0); CHLORIDE 100 mEq/L (98-107); CREATININE - SERUM 0.5 mg/dL (0.6-1.2); GLUCOSE 107 mg/dL (70-105); POTASSIUM SERUM 3.8 mEq/L (3.5-5.1); SGOT 184 U/L (13-39); SGPT/ALT 34 U/L (7-52); SODIUM SERUM 134 mEq/L (136-145)
[2016-10-30 07:21] LABS: ANISOCYTOSIS 2+; BAND NEUTROPHILE 3 % (0-10); EOSINOPHIL 1 % (0-5); NEUTROPHILS 75 % (40-80); PLATELET ESTIMATE ADEQUATE (NORMAL); PLATELET MORPHOLOGY GIANT PLATELETS SEEN (NORMAL); TOTAL CELLS COUNTED 100
[2016-10-30] MEDS: Pantoprazole 40 mg EC Tab PO SCH (08:41)
[2016-10-30] MEDS: Multivitamin Tab PO SCH (08:41)
[2016-10-30] MEDS: Lactulose 10 Gm/15 mL 30mL UDC PO SCH (08:44)
--- NOTE | 2016-10-30 14:11 | Progress Notes ---
DATE: 10/30/2016 SUBJECTIVE: The patient is awake and alert. The patient is receiving diuresis. The patient denies acute complaints. PHYSICAL EXAMINATION: VITAL SIGNS: Temperature is 98.3, pulse of 96, blood pressure 110/58, respirations 20, O2 sat 94% on room air. CARDIOVASCULAR: S1 and S2. RESPIRATORY: Clear. GASTROINTESTINAL: Soft, distended, nontender. Positive bowel sounds. EXTREMITIES: Bilateral lower extremity edema present. LABORATORY DATA: Hematology: WBC 6.5, hemoglobin 9.7, hematocrit 27.9, platelet count of 251, 12% lymphocytes, Coagulation: PT 16.2, INR 1.53. Chemistry: Sodium 134, potassium ____, bicarbonate 28, anion gap 9.2, BUN 4, creatinine 0.5. GFR is more than 60. Glucose is 107, calcium 9.0. Total bili 16.6, AST 184, ALT 34, alkaline phosphatase 92, ammonia level is 95, total protein 7.0, albumin 2.5, globulin 4.5. Microbiology: No new micro results. RADIOLOGY: No results. ASSESSMENT: 1. Abdominal pain, resolved. 2. Ascites, ruled out. 3. Jaundice. 4. Alcohol hepatitis. 5. Alcohol liver disease. 6. Bilateral lower extremity edema. 7. Anemia. 8. Hyponatremia. 9. Hyperglycemia. 10. Transaminitis. 11. Elevated ammonia level. 12. Hypoalbuminemia. 13. Urinary tract infection. PLAN: Continue current medication and treatment. Obtain labs in a.m. Continue diuresis. Further recommendations per GI. JOB# [id number]
--- NOTE | 2016-10-30 16:14 | GI Progress Note ---
Subjective - Review of Systems Service Date: 10/30/16 Subjective: Pt feels well, is anxious to be discharged. A/Ox3 without complaint. Objective - Results Result Diagrams: 10/30/16 05:36 10/30/16 05:36 Recent Labs: Laboratory Last Values WBC 6.5 Th/cmm (4.8-10.8) 10/30/16 05:36 RBC 2.66 Mil/cmm (3.80-5.10) L 10/30/16 05:36 Hgb 9.7 gm/dL (11.7-15.5) L 10/30/16 05:36 Hct 27.9 % (35.0-45.0) L 10/30/16 05:36 MCV 105.0 fl (81-100) H 10/30/16 05:36 MCH 36.3 pg (27.0-31.0) H 10/30/16 05:36 MCHC Differential 34.6 pg (28.0-36.0) 10/30/16 05:36 RDW 25.0 % (11.5-20.0) H 10/30/16 05:36 Plt Count 251 Th/cmm (150-400) 10/30/16 05:36 MPV 8.0 fl 10/30/16 05:36 Band Neutrophils % 3 % (0-10) 10/30/16 05:36 Neutrophils (Manual) 75 % (40-80) 10/30/16 05:36 Lymphocytes 12 % (20-50) L 10/30/16 05:36 Monocytes 9 % (2-10) 10/30/16 05:36 Eosinophils 1 % (0-5) 10/30/16 05:36 Basophils 2 % (0-3) 10/29/16 05:20 Hypochromia 1+ 10/24/16 23:45 Platelet Estimate ADEQUATE (NORMAL) 10/30/16 05:36 Platelet Morphology GIANT PLATELETS SEEN (NORMAL) 10/30/16 05:36 Polychromasia 1+ 10/29/16 05:20 Anisocytosis 2+ 10/30/16 05:36 Macrocytosis 1+ 10/29/16 05:20 Target Cells 1+ 10/27/16 05:17 Tear Drop Cells 1+ 10/25/16 06:41 RBC Morph Micro Appear ABNORMAL (NORMAL) 10/30/16 05:36 PT 16.2 SECONDS (9.5-11.5) H 10/30/16 05:36 INR 1.53 (0.5-1.4) H 10/30/16 05:36 Sodium 134 mEq/L (136-145) L 10/30/16 05:36 Potassium 3.8 mEq/L (3.5-5.1) 10/30/16 05:36 Chloride 100 mEq/L (98-107) 10/30/16 05:36 Carbon Dioxide 28.6 mEq/L (21.0-31.0) 10/30/16 05:36 Anion Gap 9.2 (7.0-16.0) 10/30/16 05:36 BUN 4 mg/dL (7-25) L 10/30/16 05:36 Creatinine 0.5 mg/dL (0.6-1.2) L 10/30/16 05:36 Est GFR ( Amer) > 60.0 ml/min (>90) 10/30/16 05:36 Est GFR (Non-Af Amer) > 60.0 ml/min 10/30/16 05:36 BUN/Creatinine Ratio 8.0 10/30/16 05:36 Glucose 107 mg/dL (70-105) H 10/30/16 05:36 Hemoglobin A1c % 4.5 % (4.0-6.0) 10/24/16 23:45 Calcium 9.0 mg/dL (8.6-10.3) 10/30/16 05:36 Total Bilirubin 16.6 mg/dL (0.3-1.0) H 10/30/16 05:36 Direct Bilirubin 8.93 mg/dL (0.0-0.2) H 10/29/16 05:20 AST 184 U/L (13-39) H 10/30/16 05:36 ALT 34 U/L (7-52) 10/30/16 05:36 Alkaline Phosphatase 92 U/L (34-104) 10/30/16 05:36 Ammonia 95 umol/L (16-53) H 10/30/16 05:36 Total Protein 7.0 gm/dL (6.0-8.3) 10/30/16 05:36 Albumin 2.5 gm/dL (3.7-5.3) L 10/30/16 05:36 Globulin 4.5 gm/dL 10/30/16 05:36 Albumin/Globulin Ratio 0.6 (1.0-1.8) L 10/30/16 05:36 Urine Source CLEAN C 10/26/16 03:59 Urine Color D. YELLOW 10/26/16 03:59 Urine Clarity SL. CLOUDY (CLEAR) 10/26/16 03:59 Urine pH 6.0 (4.6 - 8.0) 10/26/16 03:59 Ur Specific [place] 1.015 (1.005-1.030) 10/26/16 03:59 Urine Protein 30 mg/dL (NEGATIVE) H 10/26/16 03:59 Urine Glucose (UA) NEGATIVE mg/dL (NEGATIVE) 10/26/16 03:59 Urine Ketones NEGATIVE mg/dL (NEGATIVE) 10/26/16 03:59 Urine Blood TRACE (NEGATIVE) 10/26/16 03:59 Urine Nitrate NEGATIVE (NEGATIVE) 10/26/16 03:59 Urine Bilirubin LARGE (NEGATIVE) H 10/26/16 03:59 Urine Ictotest POSITIVE (NEGATIVE) 10/26/16 03:59 Urine Urobilinogen 1.0 E.U./dL (0.2 - 1.0) 10/26/16 03:59 Ur Leukocyte Esterase TRACE (NEGATIVE) H 10/26/16 03:59 Urine RBC 0-1 /hpf (0-5) 10/26/16 03:59 Urine WBC 0-2 /hpf (0-5) 10/26/16 03:59 Ur Epithelial Cells RARE /lpf (FEW) 10/26/16 03:59 Urine Bacteria OCCASIONAL /hpf (NONE SEEN) 10/26/16 03:59 - Physical Exam Vitals and I&O: Vital Signs Temp 97.7 F 10/30/16 15:13 Pulse 92 10/30/16 15:13 Resp 18 10/30/16 15:13 BP 116/63 10/30/16 15:13 Pulse Ox 99 10/30/16 15:13 Intake & Output 10/29/16 10/30/16 10/30/16 18:59 06:59 18:59 Intake Total 450 Balance 450 Weight (lbs) 103.873 kg 99.7 kg Intake: Oral 450 Other: # Voids 3 2 # Bowel Movements 3 Active Medications: Current Medications Acetaminophen (Tylenol) 650 mg PO Q6H PRN PRN Reason: Mild Pain/Headache/T above 101 Stop: 12/23/16 23:07 Acetaminophen/Hydrocodone Bitart ([place] 10 Mg/325 Mg) 1 tab PO Q6H PRN PRN Reason: Pain (Severe) Stop: 12/23/16 23:07 Acetaminophen/Hydrocodone Bitart ([place] 5mg/325mg) 1 tab PO Q6H PRN PRN Reason: Moderate Pain Stop: 12/23/16 23:07 Al Hydrox/Mg Hydrox/Simethicone (Maalox) 30 ml PO Q6H PRN PRN Reason: Dyspepsia Stop: 12/23/16 23:07 Folic Acid (Folate) 1 mg PO DAILY [facility] Stop: 12/24/16 18:29 Last Admin: 10/30/16 08:41 Dose: 1 mg Furosemide (Lasix) 40 mg PO DAILY ELLIE Stop: 12/26/16 08:59 Last Admin: 10/30/16 08:41 Dose: 40 mg Lactulose (Cephulac) 20 gm PO DAILY ELLIE Stop: 12/24/16 08:59 Last Admin: 10/30/16 08:44 Dose: 20 gm Lorazepam (Ativan) 1 mg PO Q6H PRN; Protocol PRN Reason: Anxiety/Agitation Stop: 12/23/16 23:07 Magnesium Hydroxide (Milk Of Magnesia) 30 ml PO HS PRN PRN Reason: Constipation Stop: 12/23/16 23:07 Morphine Sulfate (Morphine) 2 mg IVP Q4H PRN PRN Reason: Severe Pain Stop: 12/23/16 23:13 Multivitamins/Vitamin C (Theragran) 1 tab PO DAILY ELLIE Stop: 12/24/16 18:29 Last Admin: 10/30/16 08:41 Dose: 1 tab Nitrofurantoin Macrocrystals (Macrobid) 100 mg PO BID ELLIE PRN Reason: Protocol Stop: 12/27/16 11:55 Last Admin: 10/30/16 08:41 Dose: 100 mg Ondansetron HCl (Zofran Odt) 4 mg PO Q6H PRN PRN Reason: Nausea / Vomiting Stop: 12/23/16 23:07 Last Admin: 10/29/16 12:45 Dose: 4 mg Pantoprazole Sodium (Protonix) 40 mg PO DAILY ELLIE Stop: 12/24/16 08:59 Last Admin: 10/30/16 08:41 Dose: 40 mg Pentoxifylline (Trental) 400 mg PO TIDWM ELLIE Stop: 12/26/16 11:59 Last Admin: 10/30/16 11:52 Dose: 400 mg Propranolol HCl (Inderal) 10 mg PO BID ELLIE Stop: 12/24/16 08:59 Last Admin: 10/30/16 08:47 Dose: 10 mg Spironolactone (Aldactone) 100 mg PO DAILY ELLIE Stop: 12/26/16 08:59 Last Admin: 10/30/16 08:40 Dose: 100 mg Temazepam (Restoril) 15 mg PO HS PRN; Protocol PRN Reason: Insomnia Stop: 12/23/16 23:13 Thiamine HCl (Vitamin B1) 100 mg PO DAILY ELLIE Stop: 12/24/16 18:29 Last Admin: 10/30/16 08:41 Dose: 100 mg General: Alert, Oriented x3 HEENT: Atraumatic, Other (scleral icterus) Neck: Supple Cardiovascular: Regular rate, Normal S1, Normal S2 Abdomen: Bowel sounds, Soft, Hepatomegaly, Distended, Other (no obvious fluid wave) Extremities: Edema Skin: Other (jaundice) Assessment/Plan - Problem List Patient Problems: All Active Problems Alcoholic hepatitis (Acute) K70.10 Alcoholic hepatitis without ascites (Acute) K70.10 - Assessment Assessment: # Alcoholic hepatitis # Hepatomegaly # LE edema # Jaundice Pt reports last drink was about 3 weeks prior. She still clearly is suffering alcoholic hepatitis given her elevated Tbilirubin and very large inflamed liver. She has no ascites on US, and I suspect her distended abdomen is mostly reflecting hepatomegaly. Recent studies have shown that prednisilone and trental have largely minimal to no benefit, although prednisilone can carry infection risk. Given she has concurrent UTI, will use trental in this case. LFTs mildly improving, which is typical for alcoholic hepatitis. Recovery is a long process. Plan: - continue diuretics recently increased on 10/25 to aldactone 100 and lasix 40mg , which will hopefully help with her LE edema. There has been slow improvement and she will need diuretics on discharge at the same dose. Electrolyte and Cr are normal. - No ascites on US, thus do not suspect portal vein thrombus (she would not be a good candidate for anticoagulation given background of alcoholic hepatitis) - Strongly recommend abstaining from EtOH which can facilitate recovery from alc hepatitis - Unclear whether she has underlying cirrhosis, and this can be assessed after she has been abstinent for a longer time period - 2g Na diet - continue thiamine - continue trental 400mg tid - Pt will need hepatology follow up as set up by her PCP on discharge
== END 2016-10-30 16:21 | disposition home or self-care (01) | DRG 280 ==
LOC: MSI 21:55
PROVIDERS: ADMIT Preventive Medicine Preventive Medicine/Occupational Environmental Medicine; ATTEND Preventive Medicine Preventive Medicine/Occupational Environmental Medicine
DX: K70.10 Alcoholic hepatitis without ascites (principal); K70.9 Alcoholic liver disease, unspecified; E43 Unspecified severe protein-calorie malnutrition; E87.1 Hypo-osmolality and hyponatremia; E88.09 Other disorders of plasma-protein metabolism, not elsewhere classified; Z68.41 Body mass index [BMI] 40.0-44.9, adult; R16.2 Hepatomegaly with splenomegaly, not elsewhere classified; F10.10 Alcohol abuse, uncomplicated; D64.9 Anemia, unspecified; R73.9 Hyperglycemia, unspecified; R74.0 Nonspecific elevation of levels of transaminase and lactic acid dehydrogenase [LDH]; N39.0 Urinary tract infection, site not specified; R14.0 Abdominal distension (gaseous); F41.9 Anxiety disorder, unspecified
CPT/HCPCS: 36415-UA; 71010-TC; 76705-TC; 80053-TC; 81001-TC; 82040-TC; 82140-TC; 82248-TC; 83036-90; 85007-TC; 85025-TC; 85027-TC; 85610-TC; J7030; J7042; Q0162; Z7610